=== PATIENT | female | born 1965 | race Caucasian/White ===

== ENCOUNTER 2019-01-31 09:49 | Observation (INO) | payer OTHER ==
[2019-01-31] MEDS ORDERED: LR 1,000 ML IV ONE (10:00)
[2019-01-31] MEDS ORDERED: MIDAZOLAM 2 MG/2 ML VIAL IVP ONE (12:10)
--- NOTE | 2019-01-31 12:10 | PDANEPAE ---
ANE History of Present Illness Breast cancer here for B mastectomy ANE Past Medical History - Cardiovascular History Hx Hypertension: No Hx Arrhythmias: No Hx Chest Pain: No Hx Coronary Artery / Peripheral Vascular Disease: No Hx CHF / Valvular Disease: No Hx Palpitations: No Cardiovascular History Comment: high chol - Pulmonary History Hx COPD: No Hx Asthma/Reactive Airway Disease: No Hx Recent Upper Respiratory Infection: No Hx Oxygen in Use at Home: No Hx Sleep Apnea: No Sleep Apnea Screening Result - Last Documented: Negative Pulmonary History Comment: hx of bronchitis 01/2019 finished levaquin 01/24/19. no cough currently - Neurologic History Hx Cerebrovascular Accident: No Hx Seizures: No Hx Dementia: No - Endocrine History Hx Diabetes: No Endocrine History Comment: hypothyroidism. hx of gestational diabetes - Renal History Hx Renal Disorders: No Renal History Comment: hx of uti - Liver History Hx Hepatic Disorders: No - Neurological & Psychiatric Hx Hx Neurological and Psychiatric Disorders: Yes Neurological / Psychiatric History Comment: depression- doing well with effexor - Cancer History Hx Cancer: Yes Cancer History Comment: left breast currently - Congenital Disorder History Hx Congenital Disorders: No - GI History Hx Gastrointestinal Disorders: Yes Gastrointestinal History Comment: GERD - Other Health History Other Health History: wears glasses. dental crowns. fell skiing 3 yrs ago so her left wrist and thumb can be sore at times - Chronic Pain History Chronic Pain: Yes (right wrist and thumb) - Surgical History Prior Surgeries: sinus surgery 08/2018 & 1997. orthonatic surgery 1990. left breast bx 12/2018 ANE Review of Systems Review of Systems: - Exercise capacity METS (RN): 4 METS ANE Patient History - Allergies Allergies/Adverse Reactions: bupropion [From Wellbutrin] Allergy (Verified 01/27/19 10:08) Hives - Home Medications Home Medications: Cetirizine [ZyrTEC 10 mg (*)] 10 mg PO HS 01/23/19 [Last Taken 01/31/19] Fluticasone Nasal [Flonase Nasal [place] (RX)] 1 sprays NASAL HS 01/23/19 [Last Taken 01/31/19] Levothyroxine [Synthroid 75 mcg (*)] 75 mcg PO DAILY06 01/23/19 [Last Taken 06:30] Pantoprazole Sodium [Protonix 40mg (*)] 40 mg PO DAILY 01/23/19 [Last Taken 06:30] Venlafaxine Xr [Effexor Xr 75MG (*)] 75 mg PO DAILY@12 01/23/19 [Last Taken ] Venlafaxine Xr [Effexor Xr] 150 mg PO DAILY@12 01/23/19 [Last Taken 01/31/19 09: 30] Zolpidem Tartrate [Ambien 5MG (*)] 5 mg PO HS 01/23/19 [Last Taken 01/31/19] traZODone [traZODONE 100MG (*)] 100 mg PO HS 01/23/19 [Last Taken 01/30/19] Keflex 01/31/19 [Last Taken 01/30/19] - NPO status NPO Status: no food or drink >8 hours NPO Since - Liquids (Date): 01/31/19 NPO Since - Liquids (Time): 07:30 NPO Since - Solids (Date): 01/30/19 NPO Since - Solids (Time): 02:30 - Anes Hx Anes Hx: post operative nausea and vomiting - Smoking Hx Smoking Status: Never smoked - Alcohol Use Alcohol Use: Occasionally - Family Anes Hx Family Hx Anesthesia Complications: none ANE Labs/Vital Signs - Vital Signs Blood Pressure: 118/78 Heart Rate: 80 Respiratory Rate: 16 O2 Sat (%): 92 Height: 172.72 cm Weight: 87.543 kg ANE Physical Exam - Airway Neck exam: FROM Mallampati Score: Class 2 Mouth exam: normal dental/mouth exam - Pulmonary Pulmonary: no respiratory distress, clear to auscultation - Cardiovascular Cardiovascular: regular rate and rhythym, no murmur, rub, or gallop - ASA Status ASA Status: II ANE Anesthesia Plan Anesthesia Plan: general endotracheal anesthesia Regional Anesthesia: single shot NB Total IV Anesthesia: Yes
[2019-01-31] MEDS ORDERED: SCOPOLAMINE HYDROBROMIDE 1 MG/3 DAYS PATCH TD SCH (12:15)
[2019-01-31] MEDS ORDERED: ceFAZolin 2 GM/DEXTROSE 100 ML IV ONE (12:35)
--- NOTE | 2019-01-31 12:35 | PDHPUP ---
History & Physical Update H&P update statement: This history and physical update is based on an assessment of the patient which was completed after admission or registration (within 24 hours), but prior to the surgery/procedure. H&P update: H&P reviewed & patient examined, no change in patient's condition since H&P completed
--- NOTE | 2019-01-31 12:38 | POSTOPPROG ---
Post Op Note Date of Operation: 01/31/19 Surgeon: Alex Mansfield Battery Charger: Alison Keene PA-C Anesthesia: GET(General Endotracheal) Pre-op Diagnosis: Left breast cancer Post-op Diagnosis: same Procedure: Bilateral mastectomy with left axillary SLNB and brandi reconstruction Inf/Abcess present in the surg proc area at time of surgery?: No EBL: 50-100 Complications: no immediate Drains: Kashmir Alvarez (x2) Specimen(s): left breast, left axillary SLNB, right breast
[2019-01-31] MEDS ORDERED: PROPOFOL 200 MG/20 ML VIAL ONE (12:57)
[2019-01-31] MEDS ORDERED: fentaNYL 100 MCG/2 ML INJ ONE ×2 (12:57→15:41)
[2019-01-31] MEDS ORDERED: ROCURONIUM 100 MG/10 ML VIAL ONE (12:58)
[2019-01-31] MEDS ORDERED: LIDOCAINE 2% 100 MG/5 ML SYR ONE (12:58)
[2019-01-31] MEDS ORDERED: BACITRACIN ZINC 0.5 OZ OINTTUBE TP ONE (13:13)
[2019-01-31] MEDS ORDERED: GENTAMICIN SULFATE 80 MG/2 ML VIAL ONE (13:13)
[2019-01-31] MEDS ORDERED: BUPIVACAINE 0.25% 30 ML SDV ONE (13:13)
[2019-01-31] MEDS ORDERED: ceFAZolin 1 GM/5 ML SYR ONE (13:13)
[2019-01-31] MEDS ORDERED: BACITRACIN 50,000 UNITS/10 ML SYR IRR ONE (13:14)
[2019-01-31] MEDS ORDERED: PROPOFOL/EMULSION 500 MG/50 ML BOTTLE IV ONE (14:29)
[2019-01-31] MEDS ORDERED: ONDANSETRON 4 MG/2 ML VIAL ONE ×2 (14:49→16:43)
[2019-01-31] MEDS ORDERED: DEXAMETHASONE 4 MG/ML VIAL ONE (14:49)
[2019-01-31] MEDS ORDERED: ONDANSETRON 4 MG/2 ML VIAL IVP PRN ×2 (15:08→15:45)
[2019-01-31] MEDS ORDERED: TEMAZEPAM 15 MG CAP PO PRN (15:08)
[2019-01-31] MEDS ORDERED: ACETAMINOPHEN 325 MG TAB PO PRN (15:08)
[2019-01-31] MEDS ORDERED: HYDROmorphONE/DILAUDID 1 MG/ML INJ IVP PRN ×2 (15:08→15:45)
[2019-01-31] MEDS ORDERED: HYDROCODONE/APAP 5/325 TAB PO PRN ×2 (15:08→15:45)
[2019-01-31] MEDS ORDERED: oxyCODONE IR 5 MG TAB PO PRN (15:45)
[2019-01-31] MEDS ORDERED: fentaNYL 100 MCG/2 ML INJ IVP PRN (15:45)
[2019-01-31] MEDS ORDERED: PROMETHAZINE HCL 25 MG/ML INJ IVP PRN (15:45)
[2019-01-31] MEDS ORDERED: NALOXONE HCL 0.4 MG/ML INJ IVP PRN (15:45)
[2019-01-31] MEDS ORDERED: ACETAMINOPHEN 500 MG TAB PO PRN (15:45)
--- NOTE | 2019-01-31 15:49 | POSTANESTH ---
Post Anesthetic Evaluation Cardiovascular Status: Normal, Stable, Similar to Pre-Op Cond Respiratory Status: Normal, Stable, Similar to Pre-op Cond. Level of Consciousness/Mental Status: Can Participate in Eval, Alert and Oriented Pain Control: Adequate, Prn Tx Ordered Nausea/Vomiting Control: Adequate, Prn Tx Ordered Complications Possibly Related to Anesthesia: None Noted
[2019-01-31] MEDS ORDERED: KETOROLAC 15 MG/1 ML SDV IVP SCH (18:00)
[2019-01-31] MEDS: HYDROmorphONE/DILAUDID 4 MG TAB PO PRN (18:57)
[2019-01-31] MEDS: KETOROLAC 15 MG/1 ML SDV IVP SCH (20:00)
[2019-01-31] MEDS ORDERED: ZOLPIDEM TARTRATE 5 MG TAB PO SCH (21:00)
[2019-01-31] MEDS ORDERED: CETIRIZINE 10 MG TAB PO SCH (21:00)
[2019-01-31] MEDS ORDERED: traZODone 100 MG TAB PO SCH (21:00)
[2019-02-01] MEDS: KETOROLAC 15 MG/1 ML SDV IVP SCH ×2 (02:09→08:15)
[2019-02-01] MEDS: HYDROmorphONE/DILAUDID 4 MG TAB PO PRN ×2 (02:10→08:15)
[2019-02-01] MEDS ORDERED: LEVOTHYROXINE 75 MCG TAB PO SCH (06:00)
[2019-02-01] MEDS ORDERED: PANTOPRAZOLE SODIUM 40 MG TAB PO ONE (06:15)
[2019-02-01 08:45] VITALS: BP 125/67
[2019-02-01] MEDS ORDERED: PANTOPRAZOLE SODIUM 40 MG TAB PO SCH (09:00)
--- NOTE | 2019-02-01 10:06 | GDS ---
[f rep st] DISCHARGE SUMMARY REASON FOR ADMISSION: Left breast carcinoma. HOSPITAL COURSE: 53-year-old female admitted with a small left breast carcinoma. She underwent bilateral simple mastectomy with left axillary sentinel node sampling and immediate tissue-patient observation assistant reconstruction. She had a benign postoperative course. She was discharged home the following day in good condition. She was to resume all prehospital medications. She had prescriptions for oral analgesics as per Dr. Morin. Drain care and wound care instructions were explained to the patient and in detail at bedside. They will be seen in followup as scheduled with Dr. Morin next week as well as by Dr. Mansfield and the oncology service in the next few weeks. All questions were entertained. /[id number]/MODL MTDD
--- NOTE | 2019-02-01 11:14 | ASDISCHSUM ---
Discharge Information Plan Status:Home with No Needs Medically Cleared to Leave:02/01/2019 Discharge Date:02/01/2019 CM D/C Disposition:Home, Routine, Self-Care ADT D/C Disposition:Home, Routine, Self-Care Projected Discharge Date:02/01/2019 Transportation at D/C:Family Discharge Delay Reason: Follow-Up Date:02/01/2019 Discharge Slot: Final Diagnosis: Placement Information Patient Contact Information Contact Name:DORETHA Relationship: Address:[address] Work Phone: City:[place] Alternate Phone: State/Zip Code:[place] [address] Email: Financial Information Financial Class:[employer] [facility] Primary Plan Number:[id number] Secondary Plan Desc: Secondary Plan Number: Assessment Information LACE LACE Length of stay for Answers: Less than 1 day current admission Comorbidities - select Answers: Any tumor (including all that apply lymphoma or leukemia) # of Emergency department Answers: 0 visits in the last 6 months Social determinants Answers: Mental health diagnosis (anxiety, depression, pers onality disorders, etc.) Score: 5 Date Signed: 02/01/2019 11:12 AM Electronically Signed By:YAMILA Robertson Case Management Discharge Plan Note Case Management Discharge Discharge Order Complete? Answers: Yes Patient to Obtain Answers: via Family Medications Transportation Arranged Answers: Family/Friends Discharge Comments Notes: Pt is s/p bilateral mastectomy. She is discharging home today with her and no CM needs. Date Signed: 02/01/2019 11:13 AM Electronically Signed By:YAMILA Robertson Intervention Information
[2019-02-01] MEDS ORDERED: VENLAFAXINE XR 150 MG CAP PO SCH (12:00)
[2019-02-01] MEDS ORDERED: VENLAFAXINE XR 75 MG CAP PO SCH (12:00)
== END 2019-02-01 11:29 | disposition home or self-care (01) ==
LOC: F3N 09:49 → F3E 17:17
PROVIDERS: ADMIT Surgery; ATTEND Surgery
DX: C50.312 Malignant neoplasm of lower-inner quadrant of left female breast (principal); C77.3 Secondary and unspecified malignant neoplasm of axilla and upper limb lymph nodes; Z17.0 Estrogen receptor positive status [ER+]; Z40.01 Encounter for prophylactic removal of breast; E78.00 Pure hypercholesterolemia, unspecified; E03.9 Hypothyroidism, unspecified; F32.9 Major depressive disorder, single episode, unspecified
CPT/HCPCS: 15777; 19303; 19307; 19340; 38792; A9520; J0690; J1100; J1580; J1885; J2001; J2250; J2405; J2704; J3010; Q4116

== ENCOUNTER → 2019-01-31 | Outpatient (CLI) | payer OTHER ==
--- NOTE | 2019-01-31 19:01 | GOP ---
[f rep st] OPERATIVE REPORT DATE OF OPERATION: 01/31/2019 SURGEON: Alex Mansfield MD PLASTIC SURGEON: Kirit Morin MD. GUIDE DELEGATE: Alison Keene PA-C. ANESTHESIA: General with pec block. Cordell Graham MD. PREOPERATIVE DIAGNOSIS: Left breast carcinoma. POSTOPERATIVE DIAGNOSIS: Left breast carcinoma. PROCEDURE PERFORMED: Bilateral simple mastectomy with left axillary sentinel node sampling, immediate tissue chassis driver reconstruction. FINDINGS: See below. INDICATIONS: 53-year-old female with a newly diagnosed small left breast carcinoma. Given the options of breast conservation versus mastectomy, she has opted to undergo bilateral simple mastectomy with axillary lymph node sampling. Risks and benefits were explained including bleeding, infection, tumor recurrence, need for additional adjuvant therapy, arm edema, nerve injury, as well as indications for completion axillary lymph node dissection. All questions were answered. She desires to proceed. A surgical instrument repair specialist is standard and necessary and customary for the safe performance of this procedure. DESCRIPTION OF PROCEDURE: Upon returning from lymphoscintigraphy, bilateral breasts were elliptically incised incorporating the nipple-areolar complexes. Skin flaps were created to the level of the clavicle, sternum inframammary folds , as well as latissimus dorsi muscles laterally. The specimens peeled from medial to lateral and taken high up in the axillary tails of [facility]. The tumor was easily palpable within the 10 o'clock circumareolar position of the left breast. Normal-appearing skin flaps were present with the initial tumor. Additional skin margins were obtained and sent as final margins. The left axilla was opened. A solitary conglomeration of nodes measuring 4000 units on the gamma counter were identified. These were soft and fatty in appearance. They were excised from the surrounding tissue and sent for permanent specimen processing. Background activity was all negligible, being less than 100 units. No suspicious palpable adenopathy was present. Hemostasis was assured. Bilateral breast envelopes were ensured pink and viable. Care of the case was turned to Dr. Morin for implant placement and wound closure. Copy requested to: Suzanne Keith NP /[id number]/MODL MTDD
== END ==
LOC: FIMAGING 09:41
PROVIDERS: ATTEND Surgery
DX: C50.911 Malignant neoplasm of unspecified site of right female breast (principal); C50.912 Malignant neoplasm of unspecified site of left female breast